=== PATIENT | male | born 2000 | race Native Hawaiian/Other Pacific Islander ===

== ENCOUNTER → 2022-01-03 | Outpatient (CLI) | payer MEDICAID ==
[~2022-01-03] MED LIST: GADOTERATE 0.5 MMOL/ML (CLARISCAN) 20 ML VIAL IV ONE
--- NOTE | 2022-01-03 14:47 | Diagnostic Imaging Report ---
CLINICAL INDICATION: Patient states he had a fall in July 2021 and hit his head and has seizures. EXAM: MRI of the brain performed without and with 12 cc of Clariscan IV contrast. Sequences include sagittal T1, axial DWI, ADC map, coronal 3D FSPGR with sagittal and axial reformations, axial T1, axial T2, axial FLAIR, axial gradient echo, coronal T2 thin, coronal FLAIR thin, coronal 3D FSPGR postcontrast with sagittal and axial reformations. COMPARISON: None. 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 There is no evidence of acute cerebral infarction, intracranial hemorrhage, or mass seen. There is no evidence of cortical dysplasia, vascular malformations, hippocampal sclerosis, or brain parenchyma migrational abnormalities. The brain parenchyma is unremarkable with normal mendoza/white matter distinction. The hippocampal structures are symmetric bilaterally. There is no significant architectural distortion, midline shift, or herniation. There is no abnormal IV contrast enhancement or diffusion restriction signal abnormality. VENTRICLES: Unremarkable with no hydrocephalus. BASAL CISTERNS: Unremarkable. VISUALIZED INTRACRANIAL VESSELS: Unremarkable as visualized. SKULL/ ORBITS: Unremarkable. VISUALIZED SINUSES/ MASTOIDS: There is a small mucus retention cyst involving the right maxillary sinus. 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 Otherwise, unremarkable MRI of the brain with no evidence of cortical dysplasia, vascular malformations, hippocampal sclerosis, or brain parenchyma migrational abnormalities. 2: Small mucus retention cyst involving the right maxillary sinus. Dictated by: Dictated on workstation # [id number]
== END ==
LOC: EDSEX 13:15 → RAD 13:15
PROVIDERS: ATTEND Nurse Practitioner Family
DX: R56.9 Unspecified convulsions (principal); J34.1 Cyst and mucocele of nose and nasal sinus; Z91.81 History of falling
CPT/HCPCS: 70553

== ENCOUNTER 2022-01-31 08:40 | Emergency (ER) | payer MEDICAID ==
[~2022-01-31] VITALS: Ht 177 cm; Wt 66.0 kg
[2022-01-31] MEDS ORDERED: LACTATED RINGERS 1,000 ML IV STA (08:45)
[2022-01-31 08:51] LABS: BASOPHILS % (AUTO) 1 % (0-10); EOSINOPHILS # (AUTO) 0.1 10^3/uL (0.0-0.3); EOSINOPHILS % (AUTO) 1 % (0-10); HEMATOCRIT 44 % (40-54); HEMOGLOBIN 15.4 g/dL (13.3-17.7); LYMPHOCYTES # (AUTO) 1.8 10^3/uL (1.0-4.0); LYMPHOCYTES % (AUTO) 35 % (12-44); MEAN CORPUSCULAR HEMOGLOBIN 32 pg (25-34); MEAN CORPUSCULAR HGB CONC 35 g/dL (32-36); MEAN CORPUSCULAR VOLUME 92 fL (80-99); MEAN PLATELET VOLUME 8.6 fL (9.0-12.2); MONOCYTES # (AUTO) 0.4 10^3/uL (0.0-1.0); MONOCYTES % (AUTO) 7 % (0-12); NEUTROPHILS # (AUTO) 2.9 10^3/uL (1.8-7.8); NEUTROPHILS % (AUTO) 56 % (42-75); PLATELET COUNT 290 10^3/uL (130-400); WHITE BLOOD COUNT 5.2 10^3/uL (4.3-11.0)
[2022-01-31 09:22] LABS: ALKALINE PHOSPHATASE 61 U/L (40-136); BILIRUBIN,TOTAL 0.4 MG/DL (0.1-1.0); BUN/CREATININE RATIO 15; CALCIUM 9.2 MG/DL (8.5-10.1); CARBON DIOXIDE 21 MMOL/L (21-32); CHLORIDE 106 MMOL/L (98-107); CREATININE SERUM 1.03 MG/DL (0.60-1.30); GFR ESTIMATED 107; GLUCOSE 122 MG/DL (70-105); POTASSIUM 3.9 MMOL/L (3.6-5.0); SODIUM 141 MMOL/L (135-145)
[2022-01-31 09:23] LABS: ALANINE AMINOTRANSFERASE 25 U/L (0-55); ALBUMIN 4.8 GM/DL (3.2-4.5); TOTAL PROTEIN 7.1 GM/DL (6.4-8.2)
--- NOTE | 2022-01-31 09:36 | ED General ---
General Chief Complaint: Substance Abuse Stated Complaint: ELEVATED HEART RATE Nursing Triage Note: PT REPORTS HE DRANK CAFFEINE 6 HOURS AGO AND THEN 30 MINS PRODUCTION SUPPORT CONSULTANT HE SMOKED WEED AND FELT LIKE HE COULDNT MOVE AND HIS HEART WAS RACING AND SO HE CALLED EMS. Source of Information: Patient Exam Limitations: No Limitations History of Present Illness Date Seen by Provider: Jan 31, 2022 Time Seen by Provider: 08:38 Initial Comments Here by EMS with report of feeling his heart racing and felt really out of it. Apparently he drank a red bull about 6 hours ago and smoked marijuana 30 minutes ago. States he has had a reaction after marijuana previously. He has not tried it for a while but seems to have had a problem again this morning. EMS notes normal blood sugar. Tachycardia in the rate of 1 teens to 130s. Otherwise has no concerning findings per EMS and no other complaints per patient. He states that he was going to go ahead and drive here after he smoked marijuana but then felt so out of it that he felt like he could not move and that is when he called EMS. He wanted to make sure he was safe after that. Patient states that he is just embarrassed now. Timing/Duration: 1/2 Hour Severity: Moderate Associated Systoms: No Chest Pain, No Shortness of Air Allergies and Home Medications Allergies Coded Allergies: No Known Drug Allergies (Unverified , 01/03/22) Patient Home Medication List Home Medication List Reviewed: Yes Review of Systems Review of Systems Constitutional: see HPI; No chills, No fever; weakness EENTM: no symptoms reported Respiratory: No cough, No short of breath Cardiovascular: No chest pain; palpitations Gastrointestinal: No nausea, No vomiting Musculoskeletal: No back pain, No neck pain Psychiatric/Neurological: Anxiety, Weakness Past Qwkkijm-Qteiwl-Jfktll Hx Patient Social History Tobacco Use?: No Use of E-Cig and/or Vaping dev: No Substance use?: Yes Substance type: Marijuana Alcohol Use?: Yes Alcohol type: Other Alcohol Frequency: Once in a while Pt feels they are or have been: No Past Medical History Surgeries: No Respiratory: No Cardiac: No Neurological: No Family Medical History Reviewed and Corrections made No Pertinent Family Hx Physical Exam Vital Signs Vital Signs - First Documented 01/31/22 08:40 Temp 37.0 Pulse 117 Resp 18 B/P (MAP) 155/94 (114) Pulse Ox 99 O2 Delivery Room Air Capillary Refill : Less Than 3 Seconds Height, Weight, BMI Height: '" Weight: lbs. oz. kg; 21.00 BMI Method: General Appearance: No Apparent Distress, WD/WN HEENT: PERRL/EOMI, Pharynx Normal Neck: Full Range of Motion, Non Tender, Supple Respiratory: Lungs Clear, Normal Breath Sounds Cardiovascular: No Murmur, Tachycardia Gastrointestinal: Non Tender, Soft Back: Normal Inspection, No CVA Tenderness, No Vertebral Tenderness Extremity: Normal Range of Motion, Non Tender Neurologic/Psychiatric: Alert, Oriented x3 Skin: Normal Color, Warm/Dry Progress/Results/Core Measures Suspected Sepsis SIRS Temperature: Pulse: 117 Respiratory Rate: 18 Laboratory Tests 01/31/22 08:45: White Blood Count 5.2 Blood Pressure 155 /94 Mean: 114 Laboratory Tests 01/31/22 08:45: Creatinine 1.03, Platelet Count 290, Total Bilirubin 0.4 Results/Orders Lab Results Laboratory Tests Test 01/31/22 08:45 Range/Units White Blood Count 5.2 4.3-11.0 10^3/uL Red Blood Count 4.81 4.30-5.52 10^6/uL Hemoglobin 15.4 13.3-17.7 g/dL Hematocrit 44 40-54 % Mean Corpuscular Volume 92 80-99 fL Mean Corpuscular Hemoglobin 32 25-34 pg Mean Corpuscular Hemoglobin Concent 35 32-36 g/dL Red Cell Distribution Width 12.3 10.0-14.5 % Platelet Count 290 130-400 10^3/uL Mean Platelet Volume 8.6 L 9.0-12.2 fL Immature Granulocyte % (Auto) 0 % Neutrophils (%) (Auto) 56 42-75 % Lymphocytes (%) (Auto) 35 12-44 % Monocytes (%) (Auto) 7 0-12 % Eosinophils (%) (Auto) 1 0-10 % Basophils (%) (Auto) 1 0-10 % Neutrophils # (Auto) 2.9 1.8-7.8 10^3/uL Lymphocytes # (Auto) 1.8 1.0-4.0 10^3/uL Monocytes # (Auto) 0.4 0.0-1.0 10^3/uL Eosinophils # (Auto) 0.1 0.0-0.3 10^3/uL Basophils # (Auto) 0.0 0.0-0.1 10^3/uL Immature Granulocyte # (Auto) 0.0 0.0-0.1 10^3/uL Sodium Level 141 135-145 MMOL/L Potassium Level 3.9 3.6-5.0 MMOL/L Chloride Level 106 98-107 MMOL/L Carbon Dioxide Level 21 21-32 MMOL/L Anion Gap 14 5-14 MMOL/L Blood Urea Nitrogen 15 7-18 MG/DL Creatinine 1.03 0.60-1.30 MG/DL Estimat Glomerular Filtration Rate 107 BUN/Creatinine Ratio 15 Glucose Level 122 H 70-105 MG/DL Calcium Level 9.2 8.5-10.1 MG/DL Corrected Calcium 8.5-10.1 MG/DL Magnesium Level 2.0 1.6-2.4 MG/DL Total Bilirubin 0.4 0.1-1.0 MG/DL Aspartate Amino Transf (AST/SGOT) 22 5-34 U/L Alanine Aminotransferase (ALT/SGPT) 25 0-55 U/L Alkaline Phosphatase 61 40-136 U/L Total Protein 7.1 6.4-8.2 GM/DL Albumin 4.8 H 3.2-4.5 GM/DL My Orders Orders - STONEY SCHWAB MD Ed Iv/Invasive Line Start (01/31/22 08:45) Ekg Tracing (01/31/22 08:45) Monitor-Rhythm Ecg Trace Only (01/31/22 08:45) Cbc With Automated Diff (01/31/22 08:45) Comprehensive Metabolic Panel (01/31/22 08:45) Magnesium (01/31/22 08:45) Lactated Ringers (Lr 1000 Ml Iv Solution (01/31/22 08:45) Vital Signs/I&O 01/31/22 01/31/22 08:40 09:40 Temp 37.0 37.0 Pulse 117 97 Resp 18 16 B/P (MAP) 155/94 (114) 130/87 Pulse Ox 99 100 O2 Delivery Room Air Room Air Capillary Refill : Less Than 3 Seconds Blood Pressure Mean: 114 Progress Note : Progress Note Seen and evaluated. IV by EMS. We will go ahead and check basic labs and EKG and give LR 1 L bolus and monitor patient. This was discussed with the patient who agrees. Monitor patient. 1000: Overall feeling much better. Walked to the bathroom without difficulty. Discharged home with return precautions. Patient verbalized understanding of instructions and agreement with plan. ECG Initial ECG Impression Date: Jan 31, 2022 Initial ECG Impression Time: 08:52 Initial ECG Rate: 96 Initial ECG Rhythm: Normal Sinus Comment Sinus rhythm with incomplete right bundle branch block and rightward axis. No evidence of ST elevation ME. No previous available for comparison. Interpreted by me. Departure Impression Primary Impression: Accidental cannabis overdose Qualified Codes: T40.711A - Poisoning by cannabis, accidental (unintentional), initial encounter Disposition: 01 HOME, SELF-CARE Condition: Improved Departure-Patient Inst. Decision time for Depature: 10:00 Patient Instructions: Marijuana Use and Addiction Add. Discharge Instructions: All discharge instructions reviewed with patient and/or family. Voiced understanding. Avoid marijuana. Drink plenty fluids and eat a normal diet. Follow-up with your doctor in a few days for recheck. Return for worse pain, fever, vomiting, weakness, breathing problems or other concerns as needed. STONEY SCHWAB MD Jan 31, 2022 09:36
[2022-01-31 09:40] VITALS: BP 130/87
== END 2022-01-31 10:02 | disposition home or self-care (01) ==
LOC: EDUNIT# 08:40 → ER FS 08:42
DX: T40.711A Poisoning by cannabis, accidental (unintentional), initial encounter (principal)
CPT/HCPCS: 36415; 80053; 83735; 85025; 93005; 93041

== ENCOUNTER 2022-03-07 20:51 | Emergency (ER) | payer MEDICAID ==
--- NOTE | 2022-03-07 22:27 | ED EENT ---
History of Present Illness General Chief Complaint: Oral/Throat Problems Stated Complaint: ULCER IN MOUTH Nursing Triage Note: PT AMB TO [facility] 2 WITH C/O ULCER IN HIS MOUTH FOR 2 DAYS AND HE NOTICED IT GREW TODAY. PT NOT C/O ANY PAIN Source: patient Exam Limitations: no limitations (LITO DANIELSON) History of Present Illness Date Seen by Provider: Mar 07, 2022 Time Seen by Provider: 22:22 Initial Comments Patient is a 21-year-old male who presents ED with a ulcer to the left inner mouth. This started yesterday he noted a small ulcer. noted increase in size since yesterday. Some pain and discomfort with eating. States he brushes his teeth daily. Denies of any lesions around the mouth. No recent URI symptoms such as cough, runny nose, sore throat. No history of similar type lesions in the past. Denies fever, chills, chest pain, shortness of breath. (LITO DANIELSON) Allergies and Home Medications Allergies Coded Allergies: No Known Drug Allergies (Unverified , 01/03/22) Patient Home Medication List Home Medication List Reviewed: Yes (LITO DANIELSON) Dexamethasone (Dexamethasone) 0.5 Mg/5 Ml Elixir, 0.5 MG PO DAILY Prescribed by: SANJAY KHALIL on 03/07/222236 Review of Systems Review of Systems Constitutional: No chills, No diaphoresis, No malaise, No weakness Eyes: Denies Blurred Vision, Denies Drainage, Denies Decreased Acuity Ears: Denies Dizziness, Denies Pain Nose: denies clots, denies congestion Mouth: other (Mouth ulcer) Throat: denies pain, denies swelling Respiratory: No cough, No dyspnea on exertion Cardiovascular: No chest pain Gastrointestinal: No abdominal pain, No diarrhea, No nausea, No vomiting Musculoskeletal: No back pain, No joint pain (LITO DANIELSON) All Other Systems Reviewed Negative Unless Noted: Yes (LITO DANIELSON) Past Ijdolay-Eqabme-Vfjamh Hx Patient Social History Tobacco Use?: No Use of E-Cig and/or Vaping dev: No Substance use?: Yes Substance type: Marijuana Substance frequency: Once in a while Alcohol Use?: No Pt feels they are or have been: No (LITO DANIELSON) Immunizations Up To Date Influenza Vaccine Up-to-Date: Yes; Up-to-Date (LITO DANIELSON) Past Medical History Surgery/Hospitalization HX: NONE REPORTED Surgeries: No Respiratory: No Cardiac: No Neurological: No (LITO DANIELSON) Family Medical History No Pertinent Family Hx (LITO DANIELSON) Physical Exam Vital Signs Vital Signs - First Documented 03/07/22 22:00 Temp 36.4 Pulse 82 Resp 18 B/P (MAP) 127/86 (100) (MARLEE MARIE DO) Height, Weight, BMI Height: '" Weight: lbs. oz. kg; 21.00 BMI Method: General Appearance: WD/WN, no apparent distress Eyes: bilateral eye normal inspection, bilateral eye PERRL, bilateral eye EOMI Ears: bilateral ear auricle normal, bilateral ear canal normal, bilateral ear TM normal Nose: normal inspection Mouth/Throat: other (Ulcerated lesion to the oral buccal mucosal left side of mouth. Slight less then 1 x 1 cm area with surrounding erythema. No purulent drainage) Neck: non-tender, full range of motion, supple, normal inspection Cardiovascular: regular rate, rhythm, no edema, no gallop, no JVD Respiratory: chest non-tender, lungs clear, normal breath sounds, no respiratory distress, no accessory muscle use Gastrointestinal: normal bowel sounds, non tender, soft Neurologic/Psychiatric: breakfast cook II-XII nml as tested, no motor/sensory deficits, alert, normal mood/affect, oriented x 3 Skin: normal color, warm/dry (LITO DANIELSON) Progress/Results/Core Measures Results/Orders Vital Signs/I&O 03/07/22 03/07/22 22:00 22:42 Temp 36.4 36.4 Pulse 82 82 Resp 18 18 B/P (MAP) 127/86 (100) 127/86 (AMRLEE MARIE DO) Blood Pressure Mean: 100 Departure Communication (PCP) Patient appears to have a aphthous ulcer to the left posterior buccal mucosal. Concerning that this may be secondary to trauma with his wisdom teeth that may be causing irritation. Does have some pain with eating. I would not suspect cancer at this time. No history of autoimmune disease. No recent viral infection. Patient without any outer oral lesions. Discussed oral gel topical. Will discharge with mouthwash as needed. Recommend dental outpatient follow- up. Avoid food irritants. Return precautions were discussed with patient. recommend salt water. (LITO DANIELSON) Impression Primary Impression: Mouth ulcer Disposition: HOME, SELF-CARE Condition: Stable Departure-Patient Inst. Decision time for Depature: 22:24 (LITO DANIELSON) [place]: [facility] [place] Primary Care Physician Patient Instructions: Mouth Sores Scripts Dexamethasone (Dexamethasone) 0.5 Mg/5 Ml Elixir 0.5 MG PO DAILY, #50 ML Prov: LITO DANIELSON 03/07/22 ATTENDING PHYSICIAN NOTE: I WAS PHYSICALLY PRESENT ER PHYSICIAN, BUT I WAS NOT INVOLVED IN ANY DECISION MAKING OR ANY CARE OF THIS PATIENT. (MARLEE MARIE DO) LITO DANIELSON Mar 07, 2022 22:27 MARLEE AMRIE DO Mar 08, 2022 05:44
[2022-03-07] MEDS ORDERED: DEXA0.5E3 PO (22:37)
[2022-03-07 22:42] VITALS: BP 127/86
== END 2022-03-07 22:44 | disposition home or self-care (01) ==
LOC: EDUNIT# 20:51 → ER 20:53
DX: K12.1 Other forms of stomatitis (principal)
CPT/HCPCS: 99281